=== PATIENT | female | born 1965 | race Caucasian/White ===

== ENCOUNTER 2017-03-02 01:57 | Emergency (ER) | payer MEDICARE, OTHER ==
[~2017-03-02] VITALS: Ht 160 cm; Wt 56.7 kg
[2017-03-02] MEDS ORDERED: PHENAZOPYRIDINE HCL 100 MG TAB PO ONE (07:30)
[2017-03-02 08:00] VITALS: BP 122/74
== END 2017-03-02 08:00 | disposition home or self-care (01) ==
LOC: ER 02:01
DX: R39.15 Urgency of urination (principal); R35.0 Frequency of micturition
CPT/HCPCS: 81002

== ENCOUNTER 2021-05-20 19:42 | Emergency (ER) | payer OTHER, MEDICAID ==
[~2021-05-20] VITALS: Ht 160 cm; Wt 49.9 kg
[2021-05-20 19:53] VITALS: BP 130/84
== END 2021-05-21 00:55 | disposition left against medical advice (07) ==
LOC: ER 19:44
DX: R25.1 Tremor, unspecified (principal); Z53.21 Procedure and treatment not carried out due to patient leaving prior to being seen by health care provider